=== PATIENT | male | born 1945 | race Caucasian/White ===

== ENCOUNTER 2017-11-09 09:36 | Emergency (ER) | payer OTHER ==
[~2017-11-09] VITALS: Ht 177.8 cm; Wt 93.9 kg
[2017-11-09 09:59] LABS: ABSOLUTE BASOPHILS 0.1 thou/uL (0.0-0.2); ABSOLUTE EOSINOPHILS 0.1 thou/uL (0.0-0.7); ABSOLUTE LYMPHOCYTES 1.9 thou/uL (0.8-5.3); ABSOLUTE MONOCYTES 0.6 thou/uL (0.0-1.2); ABSOLUTE NEUTROPHILS 4.1 thou/uL (1.6-8.1); BASOPHILS 0.9 %; EOSINOPHILS 1.4 %; HEMATOCRIT 45.7 % (42.0-52.0); LYMPHOCYTES 28.3 %; MCV 88.7 fL (80.0-100.0); MONOCYTES 8.9 %; MPV 8.1 fl. (7.2-11.1); NUCLEATED RBCS 0 /100WBC; PLATELET COUNT* 301 thou/uL (150-400); POLYS 60.5 %; RBC 5.16 mil/uL (4.50-6.00); RDW-CV 14.5 % (10.5-14.5); WBC 6.8 thou/uL (4.0-11.0)
[2017-11-09 10:12] LABS: ANION GAP 13 mmol/L (7-16); BUN 16 mg/dL (7-18); CHLORIDE 105 mmol/L (98-107); CO2 24 mmol/L (21-32); CREATININE 1.1 mg/dL (0.6-1.3); GLUCOSE 134 mg/dL (70-99); POTASSIUM 3.5 mmol/L (3.5-5.1); SODIUM 142 mmol/L (136-145)
[2017-11-09 10:17] LABS: ALBUMIN 3.9 g/dL (3.4-5.0); ALKALINE PHOSPHATASE 73 U/L (46-116); LIPASE 167 U/L (73-393); SGOT 20 U/L (15-37); SGPT 32 U/L (30-65); TOTAL BILIRUBIN 0.6 mg/dL (<0.1-1.0); TOTAL PROTEIN 7.6 g/dL (6.4-8.2); TROPONIN-I LEVEL <0.06 ng/mL (<0.06)
[2017-11-09 11:06] LABS: URINE BILIRUBIN NEGATIVE (Negative); URINE BLOOD NEGATIVE (Negative); URINE CLARITY CLEAR; URINE COLOR YELLOW; URINE GLUCOSE-RANDOM NEGATIVE (Negative); URINE KETONES TRACE (Negative); URINE LEUKOCYTES-REFLEX NEGATIVE (Negative); URINE NITRITE-REFLEX NEGATIVE (Negative); URINE PROTEIN NEGATIVE (Negative); URINE SPECIFIC GRAVITY 1.015 (1.005-1.030); URINE UROBILINOGEN 0.2 E.U./dl (0.2-1.0)
[2017-11-09] MEDS ORDERED: LIPITOR10 MG PO (11:21)
[2017-11-09 12:09] VITALS: BP 152/76
--- NOTE | 2017-11-10 18:02 | EKG ---
[place] [address] ELECTROCARDIOGRAM REPORT Name: JAI LUND Room: [facility]#: [id number] Admission: 11/09/17 Attend Phys: Discharge: 11/09/17 Date of : 41 Report #: [id number] THIS REPORT FOR: //name// [facility] ED Test Date: 2017-11-09 Test Time: 10:26:18 Pat Name: JAI LUND Department: Room: Gender: M [employer]: : [id number] Requested By: Dilshad Sky Order Number: [id number] Reading MD: Lester Roque Measurements Intervals [place] Rate: 58 P: 20 [place]: 193 QRS: 81 QRSD: 105 T: 76 QT: 417 QTc: 410 Interpretive Statements Sinus rhythm Borderline right axis deviation Minimal ST elevation, anterior leads No previous ECG available for comparison Electronically Signed On 11-10-2017 18:01:55 CDT by Lester Roque [email or web address] <ELECTRONICALLY SIGNED> By: Lester Roque MD, [facility] 11/10/17 1801 1026 1026 Lester Roque MD, FACC /EPI
== END 2017-11-09 12:10 | disposition home or self-care (01) ==
LOC: M.ERS 09:36 → EDBD 09:36 → M.ERS 12:10
PROVIDERS: Family Medicine
DX: R10.31 Right lower quadrant pain (principal); Z88.0 Allergy status to penicillin; Z88.5 Allergy status to narcotic agent; Z88.8 Allergy status to other drugs, medicaments and biological substances; E78.00 Pure hypercholesterolemia, unspecified